=== PATIENT | female | born 1955 | race Caucasian/White ===

== ENCOUNTER → 2018-07-04 | Outpatient (CLI) | payer OTHER ==
[~2018-07-04] MED LIST: LEVSOD100 PO; THYROID MEDICATION; Zyprexa Zydis5 MG PO
[2018-07-08 15:06] LABS: HPV 16 Negative (Negative); HPV 18 Negative (Negative); HPV OTHER HR TYPES Negative (Negative)
== END | disposition home or self-care (01) ==
LOC: LAB 15:37 → LAB SHORT 15:37
PROVIDERS: Obstetrics & Gynecology
DX: Z12.4 Encounter for screening for malignant neoplasm of cervix (principal)
CPT/HCPCS: 87624; G0123

== ENCOUNTER 2018-11-24 10:21 | Observation (INO) | payer OTHER ==
[~2018-11-24] VITALS: Ht 162.6 cm; Wt 59.1 kg
[2018-11-24 11:03] LABS: BASOPHILS ABSOLUTE AUTO 0.06 K/mm3 (0.00-0.23); BASOPHILS PERCENT AUTO 0 % (0-2); EOSINOPHILS ABSOLUTE AUTO 0.06 K/mm3 (0.00-0.68); EOSINOPHILS PERCENT AUTO 0 % (0-6); Hematocrit 27.4 % (33.0-51.0); Hemoglobin 9.1 g/dL (11.5-16.0); IMMATURE GRAN ABSOLUTE AUTO 0.09 K/mm3 (0.00-0.10); IMMATURE GRAN PERCENT AUTO 1 % (0-1); LYMPHOCYTES ABSOLUTE AUTO 1.67 K/mm3 (0.84-5.20); LYMPHOCYTES PERCENT AUTO 12 % (21-46); MONOCYTES PERCENT AUTO 6 % (4-13); Mean Corpuscular HGB 28.6 pg (26.0-34.0); Mean Corpuscular HGB Conc 33.2 g/dL (31.5-36.5); Mean Corpuscular Volume 86 fL (80-100); NEUTROPHILS ABSOLUTE AUTO 11.71 K/mm3 (1.96-9.15); NEUTROPHILS PERCENT AUTO 81 % (41-73); Platelet Count 523 K/mm3 (150-400); RDW Coefficient Variation 13.5 % (11.7-14.2); RDW Standard Deviation 42.6 fL (35.1-46.3); Red Blood Cell Count 3.18 M/mm3 (3.80-5.20); White Blood Cell Count 14.49 K/mm3 (4.00-11.30)
[2018-11-24 11:25] LABS: Alanine Aminotransfer (ALT/SGP 25 U/L (12-78); Albumin, Blood 2.5 g/dL (3.4-5.0); Albumin/Globulin Ratio 0.6 (0.8-1.8); Alk Phos 111 U/L (50-136); Anion Gap 10 mmol/L (6-16); Aspartate Aminotrans (AST/SGOT 19 U/L (12-37); Bilirubin, Total 0.3 mg/dL (0.1-1.0); Blood Urea Nitrogen 9 mg/dL (8-24); CO2, Blood 23 mmol/L (21-32); Calcium, Blood 8.3 mg/dL (8.5-10.1); Chloride, Blood 98 mmol/L (98-108); Creatinine, Blood 0.45 mg/dL (0.40-1.00); Globulin, Blood 4.5 g/dL (2.2-4.0); Glomerular Filtration Rate >60 (60-); Glucose, Blood 97 mg/dL (70-99); Potassium, Blood 3.4 mmol/L (3.5-5.5); Sodium, Blood 131 mmol/L (136-145)
[2018-11-24 12:14] LABS: Source, Urine Clean Catch
[2018-11-24 12:20] LABS: Magnesium, Blood 2.1 mg/dL (1.6-2.4)
[2018-11-24 12:24] LABS: Appearance, Urine Hazy (Clear); Bilirubin, Urine Neg (Neg); Blood, Urine 3+ (Neg); Color, Urine Yellow (P-Yellow); Glucose Qualitative, Urine Neg (Neg); Ketones, Urine Neg (Neg); Leukocyte Esterase, Urine 3+ (Neg); Nitrite, Urine Neg (Neg); Protein, Urine 1+ (Neg); Specific Gravity, Urine 1.005 (1.003-1.022); Urobilinogen, Urine NORM (Normal)
[2018-11-24 12:37] LABS: Bacteria Few /hpf; Squamous Epithelial Cells Few /hpf (Few); White Blood Cells, Urine TNTC /hpf (0-5)
--- NOTE | 2018-11-24 15:39 | NUR ---
ADMIT ARRIVED FROM ER VIA GURNEY, TRANSFERRED INDEPENDENTLY TO BED, A&OX3, DENIES ANY PAIN OR ANY DISCOMFORT, ORIENTED TO ROOM LAYOUT AND CALL SYSTEM.
--- NOTE | 2018-11-24 18:17 | NUR ---
CALLED TO ROOM BY PT, STATES SHE HAS DRAINAGE COMING OUT OF HER ABD, UPON ASSESSMENT PT WAS FOUND SITTING UP IN BED WITH COPIOUS AMOUNT OF VALDIVIA PURULENT, FOUL SMELLING DRAINAGE FLOWING OUT OF LOWER MID ABD, STATES " I POKED IT WITH A PIN BEFORE I CAME IN TO THE ER TODAY" AND "I WAS PICKING AT IT" INSTRUCTED NOT TO TOUCH THE AREA, ASSISTED TO THE SHOWER, GAUZE DRESSING APPLIED AFTER SHOWER.
--- NOTE | 2018-11-25 06:40 | NUR ---
PT VSS T/O NIGHT. WOUND DRNG APPEARS TO HAVE SLOWED DOWN, DRESSING IN PLACE. PT NPO POST MIDNIGHT, IVF CONT PER ORDERS. PT AMB INDEP IN ROOM/HALLS, IS VOIDING URINE W/O DIFFICULTY. PT USING CALL LIGHT FOR ASSISTANCE, WILL CONT TO MONITOR UNTIL REP GIVEN TO ONCOMING RN.
[2018-11-25] MEDS ORDERED: Bactrim Ds Tab1 EACH PO (11:15)
--- NOTE | 2018-11-25 12:55 | NUR ---
DISCHARGE PT AMBULATES OUT WITH THIS RN AT SIDE. CALLED [facility] FOR RIDE HOME VIA PT PAY. ABX SCRIPT CALLED TO [facility]. ABX SCRIPT ALSO GIVEN TO PT.
== END 2018-11-25 12:39 | disposition home or self-care (01) ==
LOC: ER 10:21 → SURS 10:22 → ER 13:17 → SURS 14:54
PROVIDERS: Emergency Medicine; Internal Medicine; ADMIT Surgery
DX: T81.49XA Infection following a procedure, other surgical site, initial encounter (principal); E03.9 Hypothyroidism, unspecified; F20.9 Schizophrenia, unspecified; Z88.0 Allergy status to penicillin; Z88.8 Allergy status to other drugs, medicaments and biological substances
CPT/HCPCS: 36415; 74176; 80053; 81001; 83605; 83690; 83735; 84145; 85025; 87040; 87077; 87086; 87186; 96365; 99285-25; J1956; J7120

== ENCOUNTER 2018-12-26 10:57 | Emergency (ER) | payer OTHER ==
[~2018-12-26] VITALS: Ht 160 cm; Wt 60.3 kg
[~2018-12-26 10:57] MED LIST changes: +Bactrim Ds Tab1 EACH PO
[2018-12-26 11:25] LABS: BASOPHILS ABSOLUTE AUTO 0.05 K/mm3 (0.00-0.23); BASOPHILS PERCENT AUTO 0 % (0-2); EOSINOPHILS ABSOLUTE AUTO 0.01 K/mm3 (0.00-0.68); EOSINOPHILS PERCENT AUTO 0 % (0-6); Hematocrit 29.9 % (33.0-51.0); IMMATURE GRAN ABSOLUTE AUTO 0.04 K/mm3 (0.00-0.10); IMMATURE GRAN PERCENT AUTO 0 % (0-1); LYMPHOCYTES ABSOLUTE AUTO 1.48 K/mm3 (0.84-5.20); LYMPHOCYTES PERCENT AUTO 12 % (21-46); MONOCYTES PERCENT AUTO 8 % (4-13); Mean Corpuscular HGB 29.3 pg (26.0-34.0); Mean Corpuscular HGB Conc 33.4 g/dL (31.5-36.5); Mean Corpuscular Volume 88 fL (80-100); Mean Platelet Volume 8.1 fL (9.1-12.4); NEUTROPHILS ABSOLUTE AUTO 9.85 K/mm3 (1.96-9.15); NEUTROPHILS PERCENT AUTO 79 % (41-73); Platelet Count 342 K/mm3 (150-400); RDW Coefficient Variation 17.3 % (11.7-14.2); RDW Standard Deviation 56.8 fL (35.1-46.3); Red Blood Cell Count 3.41 M/mm3 (3.80-5.20); White Blood Cell Count 12.43 K/mm3 (4.00-11.30)
[2018-12-26 11:46] LABS: Alanine Aminotransfer (ALT/SGP 19 U/L (12-78); Albumin/Globulin Ratio 0.7 (0.8-1.8); Alk Phos 100 U/L (50-136); Anion Gap 7 mmol/L (6-16); Aspartate Aminotrans (AST/SGOT 13 U/L (12-37); Bilirubin, Total 0.5 mg/dL (0.1-1.0); Blood Urea Nitrogen 11 mg/dL (8-24); Bun/Creatinine Ratio 18.2 (12.0-20.0); CO2, Blood 26 mmol/L (21-32); Calcium, Blood 8.5 mg/dL (8.5-10.1); Chloride, Blood 95 mmol/L (98-108); Creatinine, Blood 0.61 mg/dL (0.40-1.00); Globulin, Blood 4.2 g/dL (2.2-4.0); Glomerular Filtration Rate >60 (60-); Glucose, Blood 96 mg/dL (70-99); Potassium, Blood 3.7 mmol/L (3.5-5.5); Sodium, Blood 128 mmol/L (136-145); Total Protein, Blood 7.2 g/dL (6.4-8.2)
== END 2018-12-26 15:22 | disposition short-term general hospital (02) ==
LOC: ER 10:57
PROVIDERS: Emergency Medicine
DX: T81.40XA Infection following a procedure, unspecified, initial encounter (principal); L03.316 Cellulitis of umbilicus; D72.829 Elevated white blood cell count, unspecified; F17.210 Nicotine dependence, cigarettes, uncomplicated; Z88.0 Allergy status to penicillin; Z88.8 Allergy status to other drugs, medicaments and biological substances; Z79.899 Other long term (current) drug therapy
CPT/HCPCS: 36415; 74177; 80053; 83605; 85025; 87040; 96361; 96365-59; 99285-25; J3370; J7030; Q9967

== ENCOUNTER 2019-02-06 00:06 | Day surgery (SDC) | payer OTHER | END 2019-02-06 23:56 | disposition home or self-care (01) | LOC: WOUND 00:06 | DX: L98.492 Non-pressure chronic ulcer of skin of other sites with fat layer exposed (principal); F17.210 Nicotine dependence, cigarettes, uncomplicated; Z85.43 Personal history of malignant neoplasm of ovary; Z90.710 Acquired absence of both cervix and uterus; Z88.0 Allergy status to penicillin | CPT/HCPCS: G0463 ==

== ENCOUNTER 2019-02-10 00:26 | Day surgery (SDC) | payer OTHER | END 2019-02-10 22:45 | disposition home or self-care (01) | LOC: WOUND 00:26 | DX: L98.492 Non-pressure chronic ulcer of skin of other sites with fat layer exposed (principal); Z85.43 Personal history of malignant neoplasm of ovary; Z90.710 Acquired absence of both cervix and uterus ==

== ENCOUNTER 2019-02-12 13:50 | Day surgery (SDC) | payer OTHER | END 2019-02-12 22:39 | disposition home or self-care (01) | LOC: WOUND 13:50 | DX: T81.41XA Infection following a procedure, superficial incisional surgical site, initial encounter (principal); L98.492 Non-pressure chronic ulcer of skin of other sites with fat layer exposed; M19.90 Unspecified osteoarthritis, unspecified site; F41.9 Anxiety disorder, unspecified; E03.9 Hypothyroidism, unspecified; F31.9 Bipolar disorder, unspecified; F20.9 Schizophrenia, unspecified; Z85.43 Personal history of malignant neoplasm of ovary; Z90.710 Acquired absence of both cervix and uterus; Z90.49 Acquired absence of other specified parts of digestive tract; Z88.0 Allergy status to penicillin; Z88.8 Allergy status to other drugs, medicaments and biological substances; Z79.899 Other long term (current) drug therapy; Y83.8 Other surgical procedures as the cause of abnormal reaction of the patient, or of later complication, without mention of misadventure at the time of the procedure ==

== ENCOUNTER 2019-02-19 13:45 | Day surgery (SDC) | payer OTHER | END 2019-02-19 23:02 | disposition home or self-care (01) | LOC: WOUND 13:45 | DX: L98.492 Non-pressure chronic ulcer of skin of other sites with fat layer exposed (principal); Z85.43 Personal history of malignant neoplasm of ovary; Z90.710 Acquired absence of both cervix and uterus; Z90.79 Acquired absence of other genital organ(s); Z90.722 Acquired absence of ovaries, bilateral ==

== ENCOUNTER 2019-02-24 13:05 | Day surgery (SDC) | payer OTHER | END 2019-02-24 22:41 | disposition home or self-care (01) | LOC: WOUND 13:05 | DX: T81.41XA Infection following a procedure, superficial incisional surgical site, initial encounter (principal); E03.9 Hypothyroidism, unspecified; F31.9 Bipolar disorder, unspecified; F41.9 Anxiety disorder, unspecified; M19.90 Unspecified osteoarthritis, unspecified site; F20.9 Schizophrenia, unspecified; Z90.710 Acquired absence of both cervix and uterus; Z90.49 Acquired absence of other specified parts of digestive tract; Z90.722 Acquired absence of ovaries, bilateral; Z90.79 Acquired absence of other genital organ(s); Z85.43 Personal history of malignant neoplasm of ovary; Z88.0 Allergy status to penicillin; Z88.8 Allergy status to other drugs, medicaments and biological substances; Z79.899 Other long term (current) drug therapy; Y83.8 Other surgical procedures as the cause of abnormal reaction of the patient, or of later complication, without mention of misadventure at the time of the procedure ==

== ENCOUNTER 2019-02-26 00:15 | Day surgery (SDC) | payer OTHER | END 2019-02-26 22:54 | disposition home or self-care (01) | LOC: WOUND 00:15 | DX: T81.41XA Infection following a procedure, superficial incisional surgical site, initial encounter (principal); I96 Gangrene, not elsewhere classified; E03.9 Hypothyroidism, unspecified; F31.9 Bipolar disorder, unspecified; F41.9 Anxiety disorder, unspecified; M19.90 Unspecified osteoarthritis, unspecified site; F20.9 Schizophrenia, unspecified; Z90.710 Acquired absence of both cervix and uterus; Z90.49 Acquired absence of other specified parts of digestive tract; Z90.722 Acquired absence of ovaries, bilateral; Z90.79 Acquired absence of other genital organ(s); Z85.43 Personal history of malignant neoplasm of ovary; Z88.0 Allergy status to penicillin; Z88.8 Allergy status to other drugs, medicaments and biological substances; Z79.899 Other long term (current) drug therapy; Y83.8 Other surgical procedures as the cause of abnormal reaction of the patient, or of later complication, without mention of misadventure at the time of the procedure ==

== ENCOUNTER 2019-02-28 13:15 | Day surgery (SDC) | payer OTHER | END 2019-02-28 23:53 | disposition home or self-care (01) | LOC: WOUND 13:15 | DX: L98.492 Non-pressure chronic ulcer of skin of other sites with fat layer exposed (principal); Z85.43 Personal history of malignant neoplasm of ovary; Z90.710 Acquired absence of both cervix and uterus ==

== ENCOUNTER 2019-03-03 00:28 | Day surgery (SDC) | payer OTHER | END 2019-03-03 22:54 | disposition home or self-care (01) | LOC: WOUND 00:28 | DX: T81.41XA Infection following a procedure, superficial incisional surgical site, initial encounter (principal); E03.9 Hypothyroidism, unspecified; F31.9 Bipolar disorder, unspecified; F41.9 Anxiety disorder, unspecified; M19.90 Unspecified osteoarthritis, unspecified site; F20.9 Schizophrenia, unspecified; Z90.710 Acquired absence of both cervix and uterus; Z90.49 Acquired absence of other specified parts of digestive tract; Z90.722 Acquired absence of ovaries, bilateral; Z90.79 Acquired absence of other genital organ(s); Z85.43 Personal history of malignant neoplasm of ovary; Z88.0 Allergy status to penicillin; Z88.8 Allergy status to other drugs, medicaments and biological substances; Z79.899 Other long term (current) drug therapy; Y83.8 Other surgical procedures as the cause of abnormal reaction of the patient, or of later complication, without mention of misadventure at the time of the procedure ==

== ENCOUNTER 2019-03-06 14:00 | Day surgery (SDC) | payer OTHER | END 2019-03-06 23:17 | disposition home or self-care (01) | LOC: WOUND 14:00 | DX: S31.109A Unspecified open wound of abdominal wall, unspecified quadrant without penetration into peritoneal cavity, initial encounter (principal); E03.9 Hypothyroidism, unspecified; F29 Unspecified psychosis not due to a substance or known physiological condition; F20.9 Schizophrenia, unspecified; F31.9 Bipolar disorder, unspecified; Z85.43 Personal history of malignant neoplasm of ovary; Z90.710 Acquired absence of both cervix and uterus; Z90.79 Acquired absence of other genital organ(s); Z90.722 Acquired absence of ovaries, bilateral; Z79.899 Other long term (current) drug therapy ==

== ENCOUNTER 2019-03-17 09:00 | Day surgery (SDC) | payer OTHER | END 2019-03-17 23:02 | disposition home or self-care (01) | LOC: CT 09:00 | DX: C76.3 Malignant neoplasm of pelvis (principal); K91.871 Postprocedural hematoma of a digestive system organ or structure following other procedure; C56.2 Malignant neoplasm of left ovary; T81.41XS Infection following a procedure, superficial incisional surgical site, sequela; F17.210 Nicotine dependence, cigarettes, uncomplicated; Z90.710 Acquired absence of both cervix and uterus; Z90.49 Acquired absence of other specified parts of digestive tract; Z90.722 Acquired absence of ovaries, bilateral; Z90.79 Acquired absence of other genital organ(s); Y83.8 Other surgical procedures as the cause of abnormal reaction of the patient, or of later complication, without mention of misadventure at the time of the procedure | CPT/HCPCS: 75989; 87070; 87075; 87076; 87077; 87185; 87186; 87205; 88108; 88305; 88341; 88342 ==

== ENCOUNTER 2019-03-19 15:20 | Day surgery (SDC) | payer OTHER ==
[2019-03-19] MEDS ORDERED: THERA-D2000 UNIT PO (20:01)
[2019-03-19] MEDS ORDERED: Fish Oil 10001000 MG PO (20:01)
[2019-03-19] MEDS ORDERED: ONE DAILY MUL400 MCG PO (20:01)
[2019-03-20] MEDS ORDERED: CEFU500T30 PO (16:49)
[2019-03-20] MEDS ORDERED: Florastor250 MG PO (16:49)
== END 2019-03-19 23:02 | disposition home or self-care (01) ==
LOC: WOUND 15:20
DX: L76.82 Other postprocedural complications of skin and subcutaneous tissue (principal); I96 Gangrene, not elsewhere classified; M19.90 Unspecified osteoarthritis, unspecified site; F41.9 Anxiety disorder, unspecified; E03.9 Hypothyroidism, unspecified; F31.9 Bipolar disorder, unspecified; F20.9 Schizophrenia, unspecified; Z85.43 Personal history of malignant neoplasm of ovary; Z79.899 Other long term (current) drug therapy; Z90.49 Acquired absence of other specified parts of digestive tract; Z90.710 Acquired absence of both cervix and uterus; Z90.722 Acquired absence of ovaries, bilateral; Z90.79 Acquired absence of other genital organ(s); Y83.8 Other surgical procedures as the cause of abnormal reaction of the patient, or of later complication, without mention of misadventure at the time of the procedure
CPT/HCPCS: G0463

== ENCOUNTER 2019-03-19 16:13 | Inpatient (IN) | payer OTHER ==
[~2019-03-19] VITALS: Ht 162.6 cm; Wt 61.4 kg
[2019-03-19 16:50] LABS: BASOPHILS ABSOLUTE AUTO 0.07 K/mm3 (0.00-0.23); BASOPHILS PERCENT AUTO 1 % (0-2); EOSINOPHILS ABSOLUTE AUTO 0.03 K/mm3 (0.00-0.68); EOSINOPHILS PERCENT AUTO 0 % (0-6); Hematocrit 31.8 % (33.0-51.0); Hemoglobin 10.5 g/dL (11.5-16.0); IMMATURE GRAN ABSOLUTE AUTO 0.08 K/mm3 (0.00-0.10); IMMATURE GRAN PERCENT AUTO 1 % (0-1); LYMPHOCYTES ABSOLUTE AUTO 2.07 K/mm3 (0.84-5.20); LYMPHOCYTES PERCENT AUTO 14 % (21-46); MONOCYTES ABSOLUTE AUTO 0.96 K/mm3 (0.16-1.47); MONOCYTES PERCENT AUTO 6 % (4-13); Mean Corpuscular HGB 29.1 pg (26.0-34.0); Mean Corpuscular Volume 88 fL (80-100); Mean Platelet Volume 7.8 fL (9.1-12.4); NEUTROPHILS ABSOLUTE AUTO 11.68 K/mm3 (1.96-9.15); NEUTROPHILS PERCENT AUTO 79 % (41-73); Platelet Count 470 K/mm3 (150-400); RDW Coefficient Variation 13.8 % (11.7-14.2); RDW Standard Deviation 44.8 fL (35.1-46.3); Red Blood Cell Count 3.61 M/mm3 (3.80-5.20); White Blood Cell Count 14.89 K/mm3 (4.00-11.30)
[2019-03-19 17:14] LABS: International Normalized Ratio 1.03; Prothrombin Time Results 10.9 Sec (9.7-11.5)
[2019-03-19 17:17] LABS: Alanine Aminotransfer (ALT/SGP 18 U/L (12-78); Albumin, Blood 2.9 g/dL (3.4-5.0); Albumin/Globulin Ratio 0.6 (0.8-1.8); Alk Phos 109 U/L (50-136); Anion Gap 7 mmol/L (6-16); Aspartate Aminotrans (AST/SGOT 18 U/L (12-37); Bilirubin, Total 0.3 mg/dL (0.1-1.0); Blood Urea Nitrogen 14 mg/dL (8-24); Bun/Creatinine Ratio 23.6 (12.0-20.0); CO2, Blood 25 mmol/L (21-32); Calcium, Blood 8.6 mg/dL (8.5-10.1); Chloride, Blood 92 mmol/L (98-108); Creatinine, Blood 0.59 mg/dL (0.40-1.00); Glomerular Filtration Rate >60 (60-); Glucose, Blood 98 mg/dL (70-99); Potassium, Blood 3.5 mmol/L (3.5-5.5); Sodium, Blood 124 mmol/L (136-145); Total Protein, Blood 7.9 g/dL (6.4-8.2)
[2019-03-19] MEDS ORDERED: THERA-D2000 UNIT PO (20:01)
[2019-03-19] MEDS ORDERED: ONE DAILY MUL400 MCG PO (20:01)
[2019-03-19] MEDS ORDERED: Fish Oil 10001000 MG PO (20:01)
[2019-03-19 21:35] LABS: Source, Urine Catheter
[2019-03-19 21:37] LABS: Bilirubin, Urine Neg (Neg); Blood, Urine 3+ (Neg); Glucose Qualitative, Urine Neg (Neg); Ketones, Urine Neg (Neg); Leukocyte Esterase, Urine 1+ (Neg); Nitrite, Urine Neg (Neg); Protein, Urine Neg (Neg); Specific Gravity, Urine 1.005 (1.003-1.022); Urobilinogen, Urine NORM (Normal)
[2019-03-19 21:38] LABS: Appearance, Urine Clear (Clear); Color, Urine Pale Yellow (P-Yellow)
[2019-03-19 21:46] LABS: White Blood Cells, Urine 0-2 /hpf (0-5)
[2019-03-19 21:47] LABS: Bacteria Rare /hpf; Squamous Epithelial Cells Few /hpf (Few)
[2019-03-20 03:53] LABS: BASOPHILS ABSOLUTE AUTO 0.05 K/mm3 (0.00-0.23); BASOPHILS PERCENT AUTO 0 % (0-2); EOSINOPHILS ABSOLUTE AUTO 0.06 K/mm3 (0.00-0.68); EOSINOPHILS PERCENT AUTO 1 % (0-6); Hematocrit 26.5 % (33.0-51.0); Hemoglobin 8.8 g/dL (11.5-16.0); IMMATURE GRAN ABSOLUTE AUTO 0.06 K/mm3 (0.00-0.10); IMMATURE GRAN PERCENT AUTO 1 % (0-1); LYMPHOCYTES ABSOLUTE AUTO 1.03 K/mm3 (0.84-5.20); LYMPHOCYTES PERCENT AUTO 8 % (21-46); MONOCYTES ABSOLUTE AUTO 0.94 K/mm3 (0.16-1.47); MONOCYTES PERCENT AUTO 8 % (4-13); Mean Corpuscular HGB 28.8 pg (26.0-34.0); Mean Corpuscular HGB Conc 33.2 g/dL (31.5-36.5); Mean Corpuscular Volume 87 fL (80-100); Mean Platelet Volume 8.2 fL (9.1-12.4); NEUTROPHILS ABSOLUTE AUTO 10.08 K/mm3 (1.96-9.15); NEUTROPHILS PERCENT AUTO 83 % (41-73); Platelet Count 366 K/mm3 (150-400); RDW Standard Deviation 44.6 fL (35.1-46.3); Red Blood Cell Count 3.06 M/mm3 (3.80-5.20); White Blood Cell Count 12.22 K/mm3 (4.00-11.30)
[2019-03-20 04:18] LABS: Anion Gap 8 mmol/L (6-16); Blood Urea Nitrogen 9 mg/dL (8-24); Bun/Creatinine Ratio 17.1 (12.0-20.0); CO2, Blood 24 mmol/L (21-32); Calcium, Blood 8.1 mg/dL (8.5-10.1); Chloride, Blood 102 mmol/L (98-108); Creatinine, Blood 0.53 mg/dL (0.40-1.00); Glomerular Filtration Rate >60 (60-); Glucose, Blood 96 mg/dL (70-99); Potassium, Blood 3.7 mmol/L (3.5-5.5); Sodium, Blood 134 mmol/L (136-145)
--- NOTE | 2019-03-20 05:27 | NUR ---
SHIFT SUMMARY PT SLEEPING IN ROOM COMFORTABLY AT THIS TIME. NO ACUTE CHANGES IN STATUS SINCE ARRIVAL. PT WAS ABLE TO STAND AND AMBULATE FROM STRETCHER TO BED W/O ASSIST. RESP EVEN UNLBOARED ON RA W/ SATS >92%. DENIED ANY CP OR SOB. REDNESS NOTED TO ABD, AND SOME DISTENTION NOTED. PT REPORTS IS TENDER TO PALPATING, BUT NO OTHER PAIN. PERCUTANEOUS DRAIN NOTED TO MIDLINE ABD, DRAINING TO GRAVITY BAG ATTACHED TO PT R LEG. PT REMAINED AFEBRILE SINCE ARRIVAL. NS INFUSING IN PIV AT 125/HR. DENIES OTHER NEEDS. PT INDEPENDENT IN ROOM CALLS APPROPRIATELY. CALL LIGHT IN REACH.
--- NOTE | 2019-03-20 08:16 | NUR ---
AM NOTE. ASSUMED CARE OF PT APROX 0700. PT IS A&Ox4 AND IND IN THE ROOM. PT WAS ADMITTED FOR ABD ABCESS, PT HAS PIGTAIL DRAIN PRESENT, DRAINING SEROSANGUINEOUS FLUID. PT DENIES PAIN AT THIS TIME, PT'S ABD IS MOD DISTENDED, FRIM AND ONLY "A LITTLE TENDER" TO PALP PER PT. BT PRESENT AND NORMOACTIVE. VS STABLE, PT'S BP IS A LITTLE SOFT AT 109/58, PER PT "I HAVE LOW BP ALL THE TIME." PT IS NSR IN THE 70'S-80'S, NO EDEMA NOTED ON ASSESSMENT, L/S CLEAR T/O, PT IS ON RA. CALL LIGHT IN REACH, WILL CONTINUE TO MONITOR.
--- NOTE | 2019-03-20 11:24 | NUR ---
PT UPDATE/TRANSFER... WOUND CARE, DRESSING CHANGE AND PICTURES TAKEN OF PT'S ABD WOUND/DRAIN. SURGICAL PROVIDER AT THE BEDSIDE. PER SURGICAL PROVIDER HE WILL SPEAK WITH THE PT'S SURGICAL PROVIDER IN [place] AND POSSIBLY COBRA TRANSFER OR D/C PT HOME TO SEE THE PROVIDER IN [place] ON 03/21. PT AWARE AND AGREEABLE TO THIS PLAN OF CARE. REPORT WAS CALLED TO RECEIVING MED FLOOR RN. PT'S BELONGINGS PACKED AND SENT WITH THE PT.
[2019-03-20 15:47] LABS: Cancer Antigen 19-9 21.7 U/mL (2.0-37.0); Carcinoembryonic Antigen 2.6 ng/mL (0.0-3.0)
[2019-03-20 15:56] LABS: Cancer Antigen 125 4.4 U/mL (1.5-35.0)
[2019-03-20] MEDS ORDERED: Florastor250 MG PO (16:49)
[2019-03-20] MEDS ORDERED: CEFU500T30 PO (16:49)
--- NOTE | 2019-03-20 17:41 | NUR ---
PT TO DISCHARGE HOME. IV REMOVED, NO SS OF INFECTION NOTED. NURSE WENT OVER DISCHARGE PAPERS WITH PATIENT. PATIENT EDUCATED REGARDING ABX AND TOLD TO FINISH IT ALL. PATIENT TO FOLLOW UP WITH OB DOCTOR IN [place]. PATIENT TO BE TAKEN HOME BY [facility].
== END 2019-03-20 17:55 | disposition home or self-care (01) | DRG 872 ==
LOC: ER 16:13 → PCU 22:10 → ER 23:26 → PCU 23:34 → MEDS 03-20 11:14
PROVIDERS: Internal Medicine Hematology & Oncology; Physician Assistant; ADMIT Family Medicine
DX: A41.51 Sepsis due to Escherichia coli [E. coli] (principal); L03.311 Cellulitis of abdominal wall; E87.1 Hypo-osmolality and hyponatremia; C56.9 Malignant neoplasm of unspecified ovary; A40.8 Other streptococcal sepsis; E03.9 Hypothyroidism, unspecified; D47.3 Essential (hemorrhagic) thrombocythemia; D64.9 Anemia, unspecified; F31.9 Bipolar disorder, unspecified; F20.9 Schizophrenia, unspecified; F17.210 Nicotine dependence, cigarettes, uncomplicated; Z88.0 Allergy status to penicillin
CPT/HCPCS: 36415; 74177; 80048; 80053; 81001; 82378; 83605; 85025; 85610; 85730; 86301; 86304; 93005; 93010; 96361; 96365-59; 99285-25; A9270; J0696; J1956; J7030; Q9967

== ENCOUNTER 2019-03-31 13:02 | Day surgery (SDC) | payer OTHER ==
[~2019-03-31 13:02] MED LIST changes: +CEFU500T30 PO; +Fish Oil 10001000 MG PO; +Florastor250 MG PO; +ONE DAILY MUL400 MCG PO; +THERA-D2000 UNIT PO
== END 2019-03-31 22:38 | disposition home or self-care (01) ==
LOC: WOUND 13:02
DX: T81.41XA Infection following a procedure, superficial incisional surgical site, initial encounter (principal); I96 Gangrene, not elsewhere classified; E03.9 Hypothyroidism, unspecified; M19.90 Unspecified osteoarthritis, unspecified site; F31.9 Bipolar disorder, unspecified; F20.9 Schizophrenia, unspecified; F17.210 Nicotine dependence, cigarettes, uncomplicated; F41.8 Other specified anxiety disorders; Z85.43 Personal history of malignant neoplasm of ovary; Z90.710 Acquired absence of both cervix and uterus; Z90.722 Acquired absence of ovaries, bilateral; Z90.79 Acquired absence of other genital organ(s); Z88.0 Allergy status to penicillin; Z88.8 Allergy status to other drugs, medicaments and biological substances; Z79.899 Other long term (current) drug therapy; Y83.8 Other surgical procedures as the cause of abnormal reaction of the patient, or of later complication, without mention of misadventure at the time of the procedure
CPT/HCPCS: G0463

== ENCOUNTER 2019-04-07 13:08 | Day surgery (SDC) | payer OTHER | END 2019-04-07 22:54 | disposition home or self-care (01) | LOC: WOUND 13:08 | DX: T81.49XA Infection following a procedure, other surgical site, initial encounter (principal); I96 Gangrene, not elsewhere classified; L98.492 Non-pressure chronic ulcer of skin of other sites with fat layer exposed; E03.9 Hypothyroidism, unspecified; F31.9 Bipolar disorder, unspecified; F20.9 Schizophrenia, unspecified; F41.8 Other specified anxiety disorders; M19.90 Unspecified osteoarthritis, unspecified site; Z90.710 Acquired absence of both cervix and uterus; Z90.49 Acquired absence of other specified parts of digestive tract; Z85.43 Personal history of malignant neoplasm of ovary; Z88.0 Allergy status to penicillin; Z88.8 Allergy status to other drugs, medicaments and biological substances; Z79.899 Other long term (current) drug therapy; Y83.8 Other surgical procedures as the cause of abnormal reaction of the patient, or of later complication, without mention of misadventure at the time of the procedure ==

== ENCOUNTER 2019-04-14 13:05 | Day surgery (SDC) | payer OTHER | END 2019-04-14 22:54 | disposition home or self-care (01) | LOC: WOUND 13:05 | DX: T81.49XA Infection following a procedure, other surgical site, initial encounter (principal); E03.9 Hypothyroidism, unspecified; F29 Unspecified psychosis not due to a substance or known physiological condition; F31.9 Bipolar disorder, unspecified; F20.9 Schizophrenia, unspecified; F41.8 Other specified anxiety disorders; Z85.43 Personal history of malignant neoplasm of ovary; Z90.49 Acquired absence of other specified parts of digestive tract; Z88.0 Allergy status to penicillin; Z88.8 Allergy status to other drugs, medicaments and biological substances; Z79.899 Other long term (current) drug therapy; Z90.710 Acquired absence of both cervix and uterus; Y83.8 Other surgical procedures as the cause of abnormal reaction of the patient, or of later complication, without mention of misadventure at the time of the procedure ==

== ENCOUNTER 2019-04-21 10:42 | Day surgery (SDC) | payer OTHER | END 2019-04-21 22:41 | disposition home or self-care (01) | LOC: WOUND 10:42 | DX: T81.49XA Infection following a procedure, other surgical site, initial encounter (principal); E03.9 Hypothyroidism, unspecified; F31.9 Bipolar disorder, unspecified; F20.9 Schizophrenia, unspecified; M19.90 Unspecified osteoarthritis, unspecified site; F41.8 Other specified anxiety disorders; I49.9 Cardiac arrhythmia, unspecified; Z85.43 Personal history of malignant neoplasm of ovary; Z88.0 Allergy status to penicillin; Z88.1 Allergy status to other antibiotic agents; Z88.8 Allergy status to other drugs, medicaments and biological substances; Y83.8 Other surgical procedures as the cause of abnormal reaction of the patient, or of later complication, without mention of misadventure at the time of the procedure | CPT/HCPCS: G0463 ==

== ENCOUNTER 2019-04-23 08:51 | Day surgery (SDC) | payer OTHER ==
[~2019-04-23] VITALS: Ht 162.6 cm; Wt 60.3 kg
--- NOTE | 2019-04-23 11:09 | NUR ---
Patient up to Ambulate independently. Gait steady. Surgical site prepped with 2% Chlorhexidine cloth wipe. History, Chart, Medications and Allergies reviewed before start of procedure.Lungs clear T/O to Auscultation. Patient confirms NPO status and agrees with scheduled surgery. Pre-Op teaching done. Pt verbalizes understanding. Patient States Post-Procedure ride home has been arranged.
--- NOTE | 2019-04-23 13:33 | NUR ---
Patient up to Ambulate independently. Gait steady. Discharge instructions reviewed with patient. Patient verbalizes understanding. Copy given to patient to take home. Patient States Post-Procedure ride home has been arranged. Discharged via wheelchair to private car for ride home.
== END 2019-04-23 13:35 | disposition home or self-care (01) ==
LOC: ORSCMMR 08:51
PROVIDERS: Surgery
PROC: B5161ZA Fluoroscopy of Right Subclavian Vein using Low Osmolar Contrast, Guidance (ICD-10-PCS; principal; 2019-04-23 11:00)
PROC: 05H533Z Insertion of Infusion Device into Right Subclavian Vein, Percutaneous Approach (ICD-10-PCS; principal; 2019-04-23 11:00)
DX: C56.9 Malignant neoplasm of unspecified ovary (principal); E03.9 Hypothyroidism, unspecified; F31.9 Bipolar disorder, unspecified; F17.210 Nicotine dependence, cigarettes, uncomplicated; Z79.899 Other long term (current) drug therapy
CPT/HCPCS: 77001; C1788; J1100; J1642; J2250; J2405; J2704; J7120

== ENCOUNTER 2019-04-28 00:19 | Day surgery (SDC) | payer OTHER | END 2019-04-28 22:41 | disposition home or self-care (01) | LOC: WOUND 00:19 | DX: T81.41XD Infection following a procedure, superficial incisional surgical site, subsequent encounter (principal); E03.9 Hypothyroidism, unspecified; I49.9 Cardiac arrhythmia, unspecified; M19.90 Unspecified osteoarthritis, unspecified site; F20.9 Schizophrenia, unspecified; F41.8 Other specified anxiety disorders; F31.70 Bipolar disorder, currently in remission, most recent episode unspecified; F17.210 Nicotine dependence, cigarettes, uncomplicated; Z85.43 Personal history of malignant neoplasm of ovary; Z90.710 Acquired absence of both cervix and uterus; Z79.899 Other long term (current) drug therapy; Y83.8 Other surgical procedures as the cause of abnormal reaction of the patient, or of later complication, without mention of misadventure at the time of the procedure | CPT/HCPCS: G0463 ==

== ENCOUNTER 2019-05-30 02:04 | Day surgery (SDC) | payer OTHER ==
[2019-05-30] MEDS ORDERED: ZOFRAN8 MG PO (13:53)
--- NOTE | 2019-05-30 14:11 | NUR ---
PT REFUSED IVF TODAY. PT STS SHE IS DRINKING ENOUGH WATER AND DOES NOT FEEL WEAK OR DIZZY.
== END 2019-05-30 14:10 | disposition home or self-care (01) ==
LOC: ATC 02:04
DX: C67.7 Malignant neoplasm of urachus (principal); E03.9 Hypothyroidism, unspecified; F17.210 Nicotine dependence, cigarettes, uncomplicated; Z88.0 Allergy status to penicillin; Z85.43 Personal history of malignant neoplasm of ovary; Z79.899 Other long term (current) drug therapy
CPT/HCPCS: 96523; J1642; J7030

== ENCOUNTER 2019-06-16 15:28 | Emergency (ER) | payer OTHER ==
[~2019-06-16] VITALS: Ht 162.6 cm; Wt 62.1 kg
[~2019-06-16 15:28] MED LIST changes: +ZOFRAN8 MG PO
[2019-06-16 16:41] LABS: Hematocrit 30.2 % (33.0-51.0); Mean Corpuscular HGB 29.6 pg (26.0-34.0); Mean Corpuscular HGB Conc 33.1 g/dL (31.5-36.5); Mean Corpuscular Volume 89 fL (80-100); Mean Platelet Volume 9.3 fL (9.1-12.4); NRBC ABSOLUTE 0.03 K/mm3 (0.00-0.02); NRBC Auto 0.2 /100 WBC (0.0-0.2); Platelet Count 182 K/mm3 (150-400); RDW Coefficient Variation 17.9 % (11.7-14.2); RDW Standard Deviation 55.2 fL (35.1-46.3); Red Blood Cell Count 3.38 M/mm3 (3.80-5.20)
[2019-06-16 16:59] LABS: Alanine Aminotransfer (ALT/SGP 66 U/L (12-78); Albumin, Blood 2.9 g/dL (3.4-5.0); Albumin/Globulin Ratio 0.7 (0.8-1.8); Alk Phos 137 U/L (50-136); Anion Gap 4 mmol/L (6-16); Aspartate Aminotrans (AST/SGOT 60 U/L (12-37); Bilirubin, Total 0.1 mg/dL (0.1-1.0); Blood Urea Nitrogen 9 mg/dL (8-24); Bun/Creatinine Ratio 19.1 (12.0-20.0); CO2, Blood 25 mmol/L (21-32); Calcium, Blood 8.8 mg/dL (8.5-10.1); Chloride, Blood 102 mmol/L (98-108); Creatinine, Blood 0.47 mg/dL (0.40-1.00); Globulin, Blood 3.9 g/dL (2.2-4.0); Glomerular Filtration Rate >60 (60-); Glucose, Blood 92 mg/dL (70-99); Sodium, Blood 131 mmol/L (136-145); Total Protein, Blood 6.8 g/dL (6.4-8.2); Troponin I <0.015 ng/mL (0.000-0.040)
[2019-06-16 17:11] LABS: BAND PERCENT MAN 8 % (0-8); BASOPHILS PERCENT MAN 0 % (0-2); EOSINOPHILS ABSOLUTE MAN 0.12 K/mm3 (0.00-0.68); EOSINOPHILS PERCENT MAN 1 % (0-6); LYMPHOCYTES PERCENT MAN 17 % (21-46); METAMYELOCYTE ABSOLUTE MAN 0.62 K/mm3 (0.00-0.00); METAMYELOCYTE PERCENT MAN 5 % (0-0); MONOCYTES ABSOLUTE MAN 1.98 K/mm3 (0.16-1.47); MONOCYTES PERCENT MAN 16 % (4-13); MYELOCYTE ABSOLUTE MAN 0.12 K/mm3 (0.00-0.00); MYELOCYTE PERCENT MAN 1 % (0-0); NEUTROPHILS ABSOLUTE MAN 7.31 K/mm3 (1.96-9.15); SEG NEUTROPHILS PERCENT MAN 51 % (41-73); TOTAL CELLS COUNTED 100
[2019-06-16 17:12] LABS: PROMYELOCYTE ABSOLUTE MAN 0.12 K/mm3 (0.00-0.00); PROMYELOCYTE PERCENT MAN 1 % (0-0)
[2019-06-16] MEDS ORDERED: Klor-Con 1010 MEQ PO (18:42)
[2019-06-16 19:56] LABS: Source, Urine Clean Catch
[2019-06-16 20:03] LABS: Bilirubin, Urine Neg (Neg); Blood, Urine 2+ (Neg); Glucose Qualitative, Urine Neg (Neg); Ketones, Urine Neg (Neg); Leukocyte Esterase, Urine 2+ (Neg); Nitrite, Urine Neg (Neg); Protein, Urine Neg (Neg); Specific Gravity, Urine 1.005 (1.003-1.022); Urobilinogen, Urine NORM (Normal)
[2019-06-16 20:04] LABS: Appearance, Urine Clear (Clear); Color, Urine Yellow (P-Yellow)
[2019-06-16 20:10] LABS: Bacteria Few /hpf; Red Blood Cells, Urine 0-2 /hpf (0-2); Squamous Epithelial Cells Few /hpf (Few)
== END 2019-06-16 20:28 | disposition home or self-care (01) ==
LOC: ER 15:28
PROVIDERS: Emergency Medicine; Physician Assistant
DX: R14.0 Abdominal distension (gaseous) (principal); C56.9 Malignant neoplasm of unspecified ovary; F31.9 Bipolar disorder, unspecified; F20.9 Schizophrenia, unspecified; F17.210 Nicotine dependence, cigarettes, uncomplicated; Z88.0 Allergy status to penicillin; Z88.8 Allergy status to other drugs, medicaments and biological substances
CPT/HCPCS: 36415; 80053; 81001; 83690; 84484; 85025; 87086; 93005; 93010; 99284-25

== ENCOUNTER 2019-08-14 00:06 | Day surgery (SDC) | payer OTHER ==
[2019-08-12 10:12] LABS: BASOPHILS ABSOLUTE AUTO 0.04 K/mm3 (0.00-0.23); BASOPHILS PERCENT AUTO 1 % (0-2); EOSINOPHILS ABSOLUTE AUTO 0.03 K/mm3 (0.00-0.68); EOSINOPHILS PERCENT AUTO 0 % (0-6); Hematocrit 25.2 % (33.0-51.0); Hemoglobin 8.6 g/dL (11.5-16.0); IMMATURE GRAN ABSOLUTE AUTO 0.38 K/mm3 (0.00-0.10); IMMATURE GRAN PERCENT AUTO 5 % (0-1); LYMPHOCYTES ABSOLUTE AUTO 1.35 K/mm3 (0.84-5.20); LYMPHOCYTES PERCENT AUTO 19 % (21-46); MONOCYTES ABSOLUTE AUTO 0.92 K/mm3 (0.16-1.47); MONOCYTES PERCENT AUTO 13 % (4-13); Mean Corpuscular HGB 35.8 pg (26.0-34.0); Mean Corpuscular HGB Conc 34.1 g/dL (31.5-36.5); Mean Platelet Volume 10.4 fL (9.1-12.4); NEUTROPHILS ABSOLUTE AUTO 4.54 K/mm3 (1.96-9.15); NEUTROPHILS PERCENT AUTO 63 % (41-73); RDW Coefficient Variation 23.1 % (11.7-14.2); RDW Standard Deviation 86.9 fL (35.1-46.3); White Blood Cell Count 7.26 K/mm3 (4.00-11.30)
[2019-08-12 10:17] LABS: Mean Corpuscular Volume 105 fL (80-100)
[2019-08-12 10:19] LABS: Platelet Count 47 K/mm3 (150-400)
[2019-08-12 10:32] LABS: Alanine Aminotransfer (ALT/SGP 31 U/L (12-78); Albumin, Blood 3.2 g/dL (3.4-5.0); Albumin/Globulin Ratio 0.7 (0.8-1.8); Alk Phos 153 U/L (50-136); Anion Gap 6 mmol/L (6-16); Aspartate Aminotrans (AST/SGOT 37 U/L (12-37); Bilirubin, Total 0.2 mg/dL (0.1-1.0); Blood Urea Nitrogen 10 mg/dL (8-24); Bun/Creatinine Ratio 16.6 (12.0-20.0); CO2, Blood 26 mmol/L (21-32); Calcium, Blood 8.5 mg/dL (8.5-10.1); Chloride, Blood 107 mmol/L (98-108); Globulin, Blood 4.3 g/dL (2.2-4.0); Glomerular Filtration Rate >60 (60-); Glucose, Blood 97 mg/dL (70-99); Potassium, Blood 3.5 mmol/L (3.5-5.5); Sodium, Blood 139 mmol/L (136-145); Total Protein, Blood 7.5 g/dL (6.4-8.2)
[~2019-08-14 00:06] MED LIST changes: +Klor-Con 1010 MEQ PO
[2019-08-14] MEDS ORDERED: SYNTHROID125 MC1 (14:04)
== END 2019-08-14 16:20 | disposition home or self-care (01) ==
LOC: LAB 00:06 → ATC 00:06
PROVIDERS: Internal Medicine Hematology & Oncology
DX: D70.1 Agranulocytosis secondary to cancer chemotherapy (principal); C67.7 Malignant neoplasm of urachus; E03.9 Hypothyroidism, unspecified; Z88.1 Allergy status to other antibiotic agents; Z88.0 Allergy status to penicillin
CPT/HCPCS: 36415; 36430; 80053; 85025; 86850; 86900; 86901; 86922; J1642; J7050; P9016

== ENCOUNTER 2019-12-17 08:15 | Emergency (ER) | payer OTHER ==
[~2019-12-17] VITALS: Ht 162.6 cm; Wt 69.4 kg
[~2019-12-17 08:15] MED LIST changes: +SYNTHROID125 MC1
[2019-12-17 08:53] LABS: BASOPHILS ABSOLUTE AUTO 0.01 K/mm3 (0.00-0.23); BASOPHILS PERCENT AUTO 0 % (0-2); EOSINOPHILS PERCENT AUTO 0 % (0-6); Hematocrit 26.9 % (33.0-51.0); Hemoglobin 8.9 g/dL (11.5-16.0); IMMATURE GRAN ABSOLUTE AUTO 0.07 K/mm3 (0.00-0.10); IMMATURE GRAN PERCENT AUTO 1 % (0-1); LYMPHOCYTES ABSOLUTE AUTO 0.16 K/mm3 (0.84-5.20); LYMPHOCYTES PERCENT AUTO 3 % (21-46); MONOCYTES ABSOLUTE AUTO 0.26 K/mm3 (0.16-1.47); MONOCYTES PERCENT AUTO 4 % (4-13); Mean Corpuscular HGB 30.7 pg (26.0-34.0); Mean Corpuscular HGB Conc 33.1 g/dL (31.5-36.5); Mean Corpuscular Volume 93 fL (80-100); Mean Platelet Volume 9.5 fL (9.1-12.4); NEUTROPHILS ABSOLUTE AUTO 5.68 K/mm3 (1.96-9.15); NEUTROPHILS PERCENT AUTO 92 % (41-73); Platelet Count 120 K/mm3 (150-400); RDW Coefficient Variation 14.3 % (11.7-14.2); RDW Standard Deviation 48.3 fL (35.1-46.3); White Blood Cell Count 6.18 K/mm3 (4.00-11.30)
[2019-12-17 09:16] LABS: Alanine Aminotransfer (ALT/SGP 17 U/L (12-78); Albumin, Blood 2.5 g/dL (3.4-5.0); Albumin/Globulin Ratio 0.5 (0.8-1.8); Alk Phos 83 U/L (50-136); Anion Gap 8 mmol/L (6-16); Aspartate Aminotrans (AST/SGOT 20 U/L (12-37); Bilirubin, Total 0.3 mg/dL (0.1-1.0); Blood Urea Nitrogen 13 mg/dL (8-24); Bun/Creatinine Ratio 31.6 (12.0-20.0); CO2, Blood 23 mmol/L (21-32); Calcium, Blood 8.3 mg/dL (8.5-10.1); Chloride, Blood 102 mmol/L (98-108); Creatinine, Blood 0.41 mg/dL (0.40-1.00); Globulin, Blood 4.8 g/dL (2.2-4.0); Glomerular Filtration Rate >60 (60-); Glucose, Blood 167 mg/dL (70-99); Potassium, Blood 3.4 mmol/L (3.5-5.5); Sodium, Blood 133 mmol/L (136-145); Total Protein, Blood 7.3 g/dL (6.4-8.2)
[2019-12-17] MEDS ORDERED: Bactrim Ds Tab1 EACH PO (11:03)
[2019-12-17] MEDS ORDERED: DOXYCYCLINE HY200 M1 PO (11:03)
== END 2019-12-17 11:23 | disposition home or self-care (01) ==
LOC: ER 08:15
PROVIDERS: Emergency Medicine
DX: L03.311 Cellulitis of abdominal wall (principal); C44.509 Unspecified malignant neoplasm of skin of other part of trunk; F31.9 Bipolar disorder, unspecified; F20.9 Schizophrenia, unspecified; E07.9 Disorder of thyroid, unspecified; Z88.0 Allergy status to penicillin; Z88.8 Allergy status to other drugs, medicaments and biological substances; Z79.899 Other long term (current) drug therapy
CPT/HCPCS: 36415; 74177; 80053; 85025; 99284-25; A9270-GY; Q9967

== ENCOUNTER → 2019-12-19 | Outpatient (CLI) | payer OTHER ==
[~2019-12-19] MED LIST changes: +DOXYCYCLINE HY200 M1 PO
== END | disposition home or self-care (01) ==
LOC: LAB SHORT 19:36 → LAB 19:36
DX: B99.9 Unspecified infectious disease (principal)
CPT/HCPCS: 87015; 87116; 87206

== ENCOUNTER 2020-01-05 01:00 | Day surgery (SDC) | payer OTHER | END 2020-01-05 23:20 | disposition home or self-care (01) | LOC: WOUND 01:00 | DX: T81.40XA Infection following a procedure, unspecified, initial encounter (principal); B99.9 Unspecified infectious disease; E03.9 Hypothyroidism, unspecified; Z79.899 Other long term (current) drug therapy; Z88.0 Allergy status to penicillin; Z87.891 Personal history of nicotine dependence | CPT/HCPCS: 11106; 87070; 87075; 87077; 87186; 87205; G0463 ==

== ENCOUNTER 2020-01-07 00:37 | Day surgery (SDC) | payer OTHER | END 2020-01-07 22:51 | disposition home or self-care (01) | LOC: WOUND 00:37 | DX: T81.40XA Infection following a procedure, unspecified, initial encounter (principal); B99.9 Unspecified infectious disease | CPT/HCPCS: G0463 ==

== ENCOUNTER 2020-01-08 15:18 | Day surgery (SDC) | payer OTHER ==
--- NOTE | 2020-01-08 17:47 | NUR ---
ARRIVED TO UNIT AT 1530. ORIENTED TO CALL LIGHT. TYPE AND CROSS COMPLETE. AWAITING BLOOD PRODUCTS.
--- NOTE | 2020-01-09 02:09 | NUR ---
PATIENT ALERT AND ORIENTED 4. RECEIVED TWO UNITS OF PACKED RED BLOOD CELLS. PATIENT TOLERATED INFUSION WELL AND DID NOT EXHIBIT ANY SIGNS OF TRANSFUSION REACTION. IV FLUSHED AND REMOVED. PATIENT SENT OUT WITH ISABEL Sotomayor VIA WHEELCHAIR TO MEET HER TAXI.
== END 2020-01-09 02:08 | disposition home or self-care (01) ==
LOC: TRN 15:18 → MEDS 15:18 → TRN 01-09 02:08 → MEDS 01-09 02:08 → EDSTATUS 01-09 09:04
DX: C67.7 Malignant neoplasm of urachus (principal); D63.0 Anemia in neoplastic disease; F17.200 Nicotine dependence, unspecified, uncomplicated; E03.9 Hypothyroidism, unspecified; Z79.899 Other long term (current) drug therapy
CPT/HCPCS: 36415; 36430; 86850; 86900; 86901; 86922; P9016

== ENCOUNTER 2020-01-09 00:51 | Day surgery (SDC) | payer OTHER | END 2020-01-09 12:00 | disposition home or self-care (01) | LOC: WOUND | DX: T81.40XA Infection following a procedure, unspecified, initial encounter (principal); B99.9 Unspecified infectious disease | CPT/HCPCS: G0463 ==

== ENCOUNTER 2020-01-12 00:21 | Day surgery (SDC) | payer OTHER | END 2020-01-12 22:47 | disposition home or self-care (01) | LOC: WOUND | DX: T81.49XA Infection following a procedure, other surgical site, initial encounter (principal); B99.9 Unspecified infectious disease | CPT/HCPCS: G0463 ==

== ENCOUNTER 2020-01-14 00:32 | Day surgery (SDC) | payer OTHER | END 2020-01-14 22:38 | disposition home or self-care (01) | LOC: WOUND 00:32 | DX: T81.40XA Infection following a procedure, unspecified, initial encounter (principal); B99.9 Unspecified infectious disease; I96 Gangrene, not elsewhere classified; I49.9 Cardiac arrhythmia, unspecified; M19.90 Unspecified osteoarthritis, unspecified site; F41.8 Other specified anxiety disorders; E07.9 Disorder of thyroid, unspecified; Z79.899 Other long term (current) drug therapy; Y83.9 Surgical procedure, unspecified as the cause of abnormal reaction of the patient, or of later complication, without mention of misadventure at the time of the procedure | CPT/HCPCS: G0463 ==

== ENCOUNTER 2020-01-16 00:42 | Day surgery (SDC) | payer OTHER | END 2020-01-16 23:00 | disposition home or self-care (01) | LOC: WOUND 00:42 | DX: T81.40XA Infection following a procedure, unspecified, initial encounter (principal); B99.9 Unspecified infectious disease; I96 Gangrene, not elsewhere classified; I49.9 Cardiac arrhythmia, unspecified; E07.9 Disorder of thyroid, unspecified; M19.90 Unspecified osteoarthritis, unspecified site; F41.8 Other specified anxiety disorders; Z79.899 Other long term (current) drug therapy; Y83.8 Other surgical procedures as the cause of abnormal reaction of the patient, or of later complication, without mention of misadventure at the time of the procedure | CPT/HCPCS: G0463 ==

== ENCOUNTER 2020-01-19 00:25 | Day surgery (SDC) | payer OTHER | END 2020-01-19 23:00 | disposition home or self-care (01) | LOC: WOUND 00:25 | DX: T81.40XA Infection following a procedure, unspecified, initial encounter (principal); B99.9 Unspecified infectious disease | CPT/HCPCS: G0463; J1644; J7030; J7050 ==

== ENCOUNTER 2020-01-21 00:47 | Day surgery (SDC) | payer OTHER | END 2020-01-21 22:39 | disposition home or self-care (01) | LOC: WOUND 00:47 | DX: T81.40XA Infection following a procedure, unspecified, initial encounter (principal); B99.9 Unspecified infectious disease | CPT/HCPCS: G0463 ==

== ENCOUNTER 2020-01-23 01:55 | Day surgery (SDC) | payer OTHER | END 2020-01-23 22:37 | disposition home or self-care (01) | LOC: WOUND 01:55 | DX: T81.49XA Infection following a procedure, other surgical site, initial encounter (principal); B99.9 Unspecified infectious disease | CPT/HCPCS: G0463 ==

== ENCOUNTER 2020-01-26 00:28 | Day surgery (SDC) | payer OTHER | END 2020-01-26 22:39 | disposition home or self-care (01) | LOC: WOUND 00:28 | DX: T81.49XA Infection following a procedure, other surgical site, initial encounter (principal); B99.9 Unspecified infectious disease | CPT/HCPCS: G0463 ==

== ENCOUNTER 2020-01-28 00:59 | Day surgery (SDC) | payer OTHER | END 2020-01-28 12:00 | disposition home or self-care (01) | LOC: WOUND 00:59 | DX: T81.49XA Infection following a procedure, other surgical site, initial encounter (principal); B99.9 Unspecified infectious disease; I96 Gangrene, not elsewhere classified; I49.9 Cardiac arrhythmia, unspecified; E07.9 Disorder of thyroid, unspecified; M19.90 Unspecified osteoarthritis, unspecified site; F41.8 Other specified anxiety disorders; Z88.0 Allergy status to penicillin; Z88.8 Allergy status to other drugs, medicaments and biological substances; Z79.899 Other long term (current) drug therapy; Y83.8 Other surgical procedures as the cause of abnormal reaction of the patient, or of later complication, without mention of misadventure at the time of the procedure | CPT/HCPCS: G0463 ==

== ENCOUNTER 2020-01-30 02:00 | Day surgery (SDC) | payer OTHER | END 2020-01-30 22:43 | disposition home or self-care (01) | LOC: WOUND 02:00 | DX: T81.40XA Infection following a procedure, unspecified, initial encounter (principal); B99.9 Unspecified infectious disease; Z88.0 Allergy status to penicillin; Z88.8 Allergy status to other drugs, medicaments and biological substances; Z79.899 Other long term (current) drug therapy; Y83.8 Other surgical procedures as the cause of abnormal reaction of the patient, or of later complication, without mention of misadventure at the time of the procedure | CPT/HCPCS: G0463 ==

== ENCOUNTER 2020-02-02 00:45 | Day surgery (SDC) | payer OTHER | END 2020-02-02 22:40 | disposition home or self-care (01) | LOC: WOUND 00:45 | DX: T81.40XA Infection following a procedure, unspecified, initial encounter (principal); B99.9 Unspecified infectious disease | CPT/HCPCS: G0463 ==

== ENCOUNTER 2020-02-04 00:39 | Day surgery (SDC) | payer OTHER | END 2020-02-04 22:47 | disposition home or self-care (01) | LOC: WOUND 00:39 | DX: C76.2 Malignant neoplasm of abdomen (principal); T81.40XD Infection following a procedure, unspecified, subsequent encounter; E03.9 Hypothyroidism, unspecified; Z79.899 Other long term (current) drug therapy | CPT/HCPCS: G0463 ==

== ENCOUNTER 2020-02-06 02:10 | Day surgery (SDC) | payer OTHER | END 2020-02-06 22:57 | disposition home or self-care (01) | LOC: WOUND 02:10 | DX: C76.2 Malignant neoplasm of abdomen (principal); T81.40XD Infection following a procedure, unspecified, subsequent encounter | CPT/HCPCS: G0463 ==

== ENCOUNTER 2020-02-09 10:24 | Day surgery (SDC) | payer OTHER | END 2020-02-09 12:00 | disposition home or self-care (01) | LOC: WOUND 10:24 | DX: T81.49XD Infection following a procedure, other surgical site, subsequent encounter (principal); B99.9 Unspecified infectious disease; I49.9 Cardiac arrhythmia, unspecified; M19.90 Unspecified osteoarthritis, unspecified site; E07.9 Disorder of thyroid, unspecified; F41.8 Other specified anxiety disorders; Z79.899 Other long term (current) drug therapy; Z88.0 Allergy status to penicillin; Z88.8 Allergy status to other drugs, medicaments and biological substances; Y83.8 Other surgical procedures as the cause of abnormal reaction of the patient, or of later complication, without mention of misadventure at the time of the procedure | CPT/HCPCS: G0463 ==

== ENCOUNTER 2020-02-11 00:43 | Day surgery (SDC) | payer OTHER | END 2020-02-11 12:00 | disposition home or self-care (01) | LOC: WOUND 00:43 | DX: T81.40XD Infection following a procedure, unspecified, subsequent encounter (principal) | CPT/HCPCS: G0463 ==

== ENCOUNTER 2020-02-13 01:32 | Day surgery (SDC) | payer OTHER | END 2020-02-13 22:57 | disposition home or self-care (01) | LOC: WOUND 01:32 | DX: C76.2 Malignant neoplasm of abdomen (principal); T81.40XD Infection following a procedure, unspecified, subsequent encounter | CPT/HCPCS: G0463 ==

== ENCOUNTER 2020-02-16 08:44 | Day surgery (SDC) | payer OTHER | END 2020-02-16 23:46 | disposition home or self-care (01) | LOC: WOUND 08:44 | DX: T81.49XD Infection following a procedure, other surgical site, subsequent encounter (principal); B99.9 Unspecified infectious disease; I96 Gangrene, not elsewhere classified; C76.2 Malignant neoplasm of abdomen; I49.9 Cardiac arrhythmia, unspecified; E07.9 Disorder of thyroid, unspecified; M19.90 Unspecified osteoarthritis, unspecified site; F41.8 Other specified anxiety disorders; Z79.899 Other long term (current) drug therapy; Z88.0 Allergy status to penicillin; Z88.8 Allergy status to other drugs, medicaments and biological substances; Y83.8 Other surgical procedures as the cause of abnormal reaction of the patient, or of later complication, without mention of misadventure at the time of the procedure | CPT/HCPCS: G0463 ==

== ENCOUNTER 2020-02-18 03:16 | Day surgery (SDC) | payer OTHER | END 2020-02-18 23:25 | disposition home or self-care (01) | LOC: WOUND 03:16 | DX: S31.105D Unspecified open wound of abdominal wall, periumbilic region without penetration into peritoneal cavity, subsequent encounter (principal); L08.9 Local infection of the skin and subcutaneous tissue, unspecified; I96 Gangrene, not elsewhere classified; C76.2 Malignant neoplasm of abdomen; E03.9 Hypothyroidism, unspecified; F31.9 Bipolar disorder, unspecified; F29 Unspecified psychosis not due to a substance or known physiological condition; F20.9 Schizophrenia, unspecified; M19.90 Unspecified osteoarthritis, unspecified site; F41.8 Other specified anxiety disorders; I49.9 Cardiac arrhythmia, unspecified; Z88.0 Allergy status to penicillin; Z88.5 Allergy status to narcotic agent; Z90.710 Acquired absence of both cervix and uterus; Z90.49 Acquired absence of other specified parts of digestive tract; Z79.899 Other long term (current) drug therapy; X58.XXXD Exposure to other specified factors, subsequent encounter | CPT/HCPCS: G0463 ==

== ENCOUNTER 2020-02-25 02:09 | Day surgery (SDC) | payer OTHER | END 2020-02-25 23:17 | disposition home or self-care (01) | LOC: WOUND 02:09 | DX: S31.105A Unspecified open wound of abdominal wall, periumbilic region without penetration into peritoneal cavity, initial encounter (principal); L03.311 Cellulitis of abdominal wall; I96 Gangrene, not elsewhere classified; C76.2 Malignant neoplasm of abdomen; E03.9 Hypothyroidism, unspecified; F31.9 Bipolar disorder, unspecified; F20.9 Schizophrenia, unspecified; F29 Unspecified psychosis not due to a substance or known physiological condition; I49.9 Cardiac arrhythmia, unspecified; M19.90 Unspecified osteoarthritis, unspecified site; F41.8 Other specified anxiety disorders; Z88.0 Allergy status to penicillin; Z88.8 Allergy status to other drugs, medicaments and biological substances; Z79.899 Other long term (current) drug therapy; Z90.710 Acquired absence of both cervix and uterus; Z90.49 Acquired absence of other specified parts of digestive tract; X58.XXXA Exposure to other specified factors, initial encounter ==

== ENCOUNTER → 2020-03-02 | Outpatient (CLI) | payer OTHER ==
[2020-03-02 18:48] LABS: Appearance, Urine Hazy (Clear); Bilirubin, Urine Neg (Neg); Blood, Urine 5+ (Neg); Color, Urine Yellow (P-Yellow); Glucose Qualitative, Urine Neg (Neg); Ketones, Urine Neg (Neg); Leukocyte Esterase, Urine 3+ (Neg); Nitrite, Urine Neg (Neg); Protein, Urine 2+ (Neg); Specific Gravity, Urine 1.005 (1.003-1.022); Urobilinogen, Urine NORM (Normal)
[2020-03-02 18:59] LABS: Bacteria Many /hpf; Mucus Light (0-Heavy); Red Blood Cells, Urine 0-2 /hpf (0-2); Squamous Epithelial Cells Not Seen /hpf (Few); White Blood Cells, Urine TNTC /hpf (0-5)
== END | disposition home or self-care (01) ==
LOC: LAB SHORT 17:02 → LAB 17:02
PROVIDERS: Registered Nurse Oncology
DX: N39.0 Urinary tract infection, site not specified (principal); N32.89 Other specified disorders of bladder; R19.00 Intra-abdominal and pelvic swelling, mass and lump, unspecified site
CPT/HCPCS: 81001; 87086

== ENCOUNTER 2020-03-04 00:18 | Day surgery (SDC) | payer OTHER | END 2020-03-04 22:51 | disposition home or self-care (01) | LOC: WOUND 00:18 | DX: L03.311 Cellulitis of abdominal wall (principal); I96 Gangrene, not elsewhere classified; C76.2 Malignant neoplasm of abdomen; S31.105D Unspecified open wound of abdominal wall, periumbilic region without penetration into peritoneal cavity, subsequent encounter; E03.9 Hypothyroidism, unspecified; F31.9 Bipolar disorder, unspecified; F20.9 Schizophrenia, unspecified; Z90.710 Acquired absence of both cervix and uterus; Z90.79 Acquired absence of other genital organ(s); Z90.722 Acquired absence of ovaries, bilateral; Z90.49 Acquired absence of other specified parts of digestive tract; Z88.0 Allergy status to penicillin; Z88.8 Allergy status to other drugs, medicaments and biological substances; Z79.899 Other long term (current) drug therapy; M19.90 Unspecified osteoarthritis, unspecified site; F41.8 Other specified anxiety disorders; X58.XXXD Exposure to other specified factors, subsequent encounter ==

== ENCOUNTER 2020-03-10 02:59 | Day surgery (SDC) | payer OTHER | END 2020-03-10 23:31 | disposition home or self-care (01) | LOC: WOUND 02:59 | DX: S31.105A Unspecified open wound of abdominal wall, periumbilic region without penetration into peritoneal cavity, initial encounter (principal); L03.311 Cellulitis of abdominal wall; C78.2 Secondary malignant neoplasm of pleura; I49.9 Cardiac arrhythmia, unspecified; E07.9 Disorder of thyroid, unspecified; M19.90 Unspecified osteoarthritis, unspecified site; F41.8 Other specified anxiety disorders; Z79.899 Other long term (current) drug therapy; Z88.0 Allergy status to penicillin; Z88.8 Allergy status to other drugs, medicaments and biological substances; X58.XXXA Exposure to other specified factors, initial encounter | CPT/HCPCS: G0463 ==

== ENCOUNTER 2020-03-16 00:24 | Day surgery (SDC) | payer OTHER | END 2020-03-16 23:00 | disposition home or self-care (01) | LOC: WOUND 00:24 | DX: S31.105D Unspecified open wound of abdominal wall, periumbilic region without penetration into peritoneal cavity, subsequent encounter (principal); L03.311 Cellulitis of abdominal wall; C76.2 Malignant neoplasm of abdomen; I49.9 Cardiac arrhythmia, unspecified; E07.9 Disorder of thyroid, unspecified; I96 Gangrene, not elsewhere classified; M19.90 Unspecified osteoarthritis, unspecified site; F41.8 Other specified anxiety disorders; Z79.899 Other long term (current) drug therapy; Z88.0 Allergy status to penicillin; Z88.8 Allergy status to other drugs, medicaments and biological substances; X58.XXXD Exposure to other specified factors, subsequent encounter | CPT/HCPCS: G0463 ==

== ENCOUNTER 2020-03-23 00:29 | Day surgery (SDC) | payer OTHER | END 2020-03-23 22:37 | disposition home or self-care (01) | LOC: WOUND 00:29 | DX: T81.49XD Infection following a procedure, other surgical site, subsequent encounter (principal); L03.311 Cellulitis of abdominal wall; I96 Gangrene, not elsewhere classified; C67.7 Malignant neoplasm of urachus; C79.2 Secondary malignant neoplasm of skin; E03.9 Hypothyroidism, unspecified; F31.9 Bipolar disorder, unspecified; F20.9 Schizophrenia, unspecified; I49.9 Cardiac arrhythmia, unspecified; M19.90 Unspecified osteoarthritis, unspecified site; F41.8 Other specified anxiety disorders; Z79.899 Other long term (current) drug therapy; Z90.710 Acquired absence of both cervix and uterus; Z90.49 Acquired absence of other specified parts of digestive tract; Z90.722 Acquired absence of ovaries, bilateral; Z90.79 Acquired absence of other genital organ(s); Z88.0 Allergy status to penicillin; Z88.8 Allergy status to other drugs, medicaments and biological substances; Y83.8 Other surgical procedures as the cause of abnormal reaction of the patient, or of later complication, without mention of misadventure at the time of the procedure | CPT/HCPCS: G0463 ==

== ENCOUNTER 2020-03-31 00:23 | Day surgery (SDC) | payer OTHER | END 2020-03-31 22:59 | disposition home or self-care (01) | LOC: WOUND 00:23 | DX: L03.311 Cellulitis of abdominal wall (principal); I96 Gangrene, not elsewhere classified; C76.2 Malignant neoplasm of abdomen; E03.9 Hypothyroidism, unspecified; F20.9 Schizophrenia, unspecified; F31.9 Bipolar disorder, unspecified; I49.9 Cardiac arrhythmia, unspecified; M19.90 Unspecified osteoarthritis, unspecified site; F41.8 Other specified anxiety disorders; Z90.710 Acquired absence of both cervix and uterus; Z90.722 Acquired absence of ovaries, bilateral; Z90.79 Acquired absence of other genital organ(s); Z79.899 Other long term (current) drug therapy; Z88.0 Allergy status to penicillin; Z88.8 Allergy status to other drugs, medicaments and biological substances | CPT/HCPCS: G0463 ==

== ENCOUNTER 2020-04-14 01:17 | Day surgery (SDC) | payer OTHER | END 2020-04-14 23:01 | disposition home or self-care (01) | LOC: WOUND 01:17 | DX: C76.2 Malignant neoplasm of abdomen (principal); L03.311 Cellulitis of abdominal wall; S31.105D Unspecified open wound of abdominal wall, periumbilic region without penetration into peritoneal cavity, subsequent encounter; Z79.899 Other long term (current) drug therapy; Z88.0 Allergy status to penicillin; Z88.8 Allergy status to other drugs, medicaments and biological substances; X58.XXXD Exposure to other specified factors, subsequent encounter | CPT/HCPCS: G0463 ==

== ENCOUNTER 2020-04-27 00:36 | Day surgery (SDC) | payer OTHER | END 2020-04-27 22:47 | disposition home or self-care (01) | LOC: WOUND 00:36 | DX: S31.105D Unspecified open wound of abdominal wall, periumbilic region without penetration into peritoneal cavity, subsequent encounter (principal); C76.2 Malignant neoplasm of abdomen; L03.311 Cellulitis of abdominal wall; X58.XXXD Exposure to other specified factors, subsequent encounter; I96 Gangrene, not elsewhere classified; E03.9 Hypothyroidism, unspecified; F31.9 Bipolar disorder, unspecified; F20.9 Schizophrenia, unspecified; Z85.43 Personal history of malignant neoplasm of ovary; Z90.710 Acquired absence of both cervix and uterus; Z90.49 Acquired absence of other specified parts of digestive tract | CPT/HCPCS: A9270; G0463 ==

== ENCOUNTER 2020-05-11 00:21 | Day surgery (SDC) | payer OTHER | END 2020-05-11 22:51 | disposition home or self-care (01) | LOC: WOUND 00:21 | DX: S31.109D Unspecified open wound of abdominal wall, unspecified quadrant without penetration into peritoneal cavity, subsequent encounter (principal); C76.2 Malignant neoplasm of abdomen; L03.311 Cellulitis of abdominal wall; L98.499 Non-pressure chronic ulcer of skin of other sites with unspecified severity; F31.9 Bipolar disorder, unspecified; F29 Unspecified psychosis not due to a substance or known physiological condition; F20.9 Schizophrenia, unspecified; Z90.710 Acquired absence of both cervix and uterus; Z98.890 Other specified postprocedural states | CPT/HCPCS: A9270; G0463 ==